=== PATIENT | male | born 1955 | race Caucasian/White ===

== ENCOUNTER 2018-12-01 15:00 | Emergency (ER) | payer OTHER ==
[~2018-12-01] VITALS: Ht 167.6 cm; Wt 74.8 kg
[2018-12-01 15:00] VITALS: BP_SYST 160
--- NOTE | 2018-12-01 15:05 | NUR ---
Patient triaged and placed in waiting room. VSS and patient appears in no acute distress at this time. Accompanied by SELF, awaiting available bed, and MD notified of need for MSE.
[2018-12-01 16:04] LABS: BASOPHILS % (AUTO) 0.7 % (0.0-2.0); EOSINOPHILS % (AUTO) 0.7 % (0.0-4.0); HEMATOCRIT 45.2 % (36-54); HEMOGLOBIN 15.1 g/dL (14.0-18.0); LYMPHOCYTES # (AUTO) 1.2 K/uL (1.0-5.5); LYMPHOCYTES % (AUTO) 18.5 % (20.5-51.5); MEAN CORPUSCULAR HEMOGLOBIN 31 pg (27-31); MEAN CORPUSCULAR HGB CONC 34 % (32-36); MEAN CORPUSCULAR VOLUME 93 fL (79.0-98.0); MONOCYTES # (AUTO) 0.5 K/uL (0.0-1.0); MONOCYTES % (AUTO) 6.8 % (1.7-9.3); NEUTROPHILS # (AUTO) 4.9 K/uL (1.8-7.7); NEUTROPHILS % (AUTO) 73.3 % (40.0-70.0); PLATELET COUNT (AUTO) 187 K/uL (130-430); RED BLOOD CELL COUNT(AUTO) 4.86 MIL/uL (4.2-6.2); WHITE BLOOD COUNT (AUTO) 6.7 K/uL (4.8-10.8)
[2018-12-01 16:09] LABS: CALCIUM 9.8 mg/dL (8.4-11.0); CREATININE 1.33 mg/dL (0.55-1.30); POTASSIUM 4.1 mmol/L (3.5-5.1)
[2018-12-01 16:11] LABS: PROTHROMBIN TIME 9.9 SECS (9.5-12.5)
[2018-12-01 16:14] LABS: ALBUMIN 4.3 g/dL (3.4-4.8); TOTAL BILIRUBIN 0.4 mg/dL (0.0-1.0)
--- NOTE | 2018-12-01 17:47 | NUR ---
DR PARHAM AT BEDSIDE FOR EVALUATION
[2018-12-01] MEDS ORDERED: KETOROLAC TROMETHAMINE 60 MG/2 ML VIAL IM ONE (18:00)
[2018-12-01] MEDS ORDERED: metroNIDAZOLE 500 MG TABLET PO ONE (18:00)
[2018-12-01] MEDS ORDERED: CIPROFLOXACIN HCL 500 MG TABLET PO ONE (18:00)
--- NOTE | 2018-12-01 18:00 | NUR ---
Pt AAOx4 ambulated into ED c/o 03/08 groin pain with nausea x 1 month. Pt took norco with no relief. Pt reports this is a chronic issue that is getting progressively worse and wishes to be evaulation.
--- NOTE | 2018-12-01 18:15 | NUR ---
Medication administered. Pt tolerated well. No adverse reactions noted.
[2018-12-01 18:29] VITALS: BP_SYST 153
--- NOTE | 2018-12-01 18:29 | NUR ---
Patient given written and verbal discharge instructions and verbalizes understanding. ER MD Jensen discussed with patient the results and treatment provided. Patient in stable condition. ID arm band removed. Rx of Zofran, Flagyl, Cipro, Colace, [place] given. Patient educated on pain management and to follow up with PMD. Pain Scale 0. Opportunity for questions provided and answered. Medication side effect fact sheet provided.
== END 2018-12-01 18:29 | disposition home or self-care (01) ==
LOC: SED 15:00
DX: K57.92 Diverticulitis of intestine, part unspecified, without perforation or abscess without bleeding (principal)
CPT/HCPCS: 36415; 74176; 76870; 80053; 85025; 85610; 85730; 96372; 99284; J1885